=== PATIENT | male | born 1975 | race Caucasian/White ===

== ENCOUNTER → 2020-07-31 | Outpatient (CLI) | payer OTHER ==
[~2020-07-31] MED LIST: FLEXERIL 10 MG10 MG PO; MEDROL4 MG PO; TORADOL 10 MG T10 MG PO
== END ==
LOC: KOH-I 14:13
DX: M13.162 Monoarthritis, not elsewhere classified, left knee (principal); M79.662 Pain in left lower leg
CPT/HCPCS: 73560